=== PATIENT | female | born 1985 | race Caucasian/White ===

== ENCOUNTER 2016-08-29 09:31 | Emergency (ER) | payer OTHER ==
[~2016-08-29] VITALS: Ht 162.6 cm; Wt 85.0 kg
[2016-08-29 09:38] VITALS: TEMP 36.9; Ht 162.6 cm; Wt 85.0 kg
[2016-08-29] MEDS ORDERED: ACET-1256 PO (10:03)
--- NOTE | 2016-08-29 10:34 | EMERGENCY ROOM VISIT NOTE ---
History Report prepared by Moy: Cindy Sands Under the Supervision of: Dr. Kendall Ro D.O. First contact with patient: 09:48 Chief Complaint: RIB PAIN Stated Complaint: LEFT SIDE RIB,SHOULDER PAIN History of Present Illness The patient is a 31 year old female who presents to the Emergency Room with complaints of worsening left-sided rib pain since yesterday. She denies any acute injury or trauma to her ribs. She denies any recent heavy lifting. Her pain radiates into her left shoulder and worsens with inspiration. She rates her current pain as a 4/10 in severity, if she takes a deep breath her pain worsens to a 7/10. Yesterday she had pain in her chest but she denies any current chest pains. The patient denies any recent illness or cold symptoms. She denies any personal or family history of blood clots. She does not take any OCP. She denies any chance of . The patient has a history of melanoma when she was 20 and had lymph nodes in her neck removed as a result. She is unsure if she had chicken pox as a child. Source of History: patient Onset: yesterday Position: other (left rib) Symptom Intensity: 4/10 Quality: other (radiating) Timing: worsening Modifying Factors (Worsening): breathing (inspiration) Associated Symptoms: No chest pain Note: Pt notes pain in her left shoulder. Review of Systems See above for pertinent positives & negatives. A total of 10 systems reviewed and were otherwise negative. Past Medical & Surgical Medical Problems: (1) History of melanoma Surgical Problems: (1) H/O tubal ligation (2) Hx of melanoma excision Family History FH: cancer Kidney disease Kidney stones Social History Smoking Status: Current Every Day Smoker Smokeless Tobacco Use: No Alcohol Use: occasionally Drug Use: none Marital Status: Housing Status: lives with family Occupation Status: employed Current/Historical Medications Scheduled PRN Acetaminophen (Tylenol), 1,000 MG PO Q8 PRN for Pain Ibuprofen Tab (Motrin), 800 MG PO Q8H PRN for Pain Allergies Coded Allergies: Erythromycin (Verified Allergy, Mild, ., 08/29/16) Physical Exam Vital Signs Date Time Temp Pulse Resp B/P Pulse Ox O2 Delivery O2 Flow Rate FiO2 08/29/16 10:44 72 08/29/16 09:38 36.9 93 16 137/89 100 Room Air Physical Exam GENERAL: Patient is well appearing and in no acute distress. HEENT: No acute trauma, normocephalic atraumatic, mucous membranes moist, no nasal congestion, no scleral icterus. NECK: No stridor, no adenopathy, no meningismus, trachea is midline. LUNGS: No dyspnea. Clear to auscultation and equal bilaterally. No wheeze, no rhonchi. HEART: Regular rate and rhythm. No murmurs, rubs, gallops appreciated. CHEST: Mild precordial tenderness to palpation, no rash, mild tenderness over the left 7th rib. ABDOMEN: Soft, nontender, bowel sounds positive, no masses appreciated, no peritonitis. BACK: No midline tenderness, no CVA tenderness EXTREMITIES: Normal motion all extremities, no cyanosis, no edema. NEUROLOGIC: Alert and oriented, no acute motor or sensory deficits, no focal weakness, cranial nerves grossly intact. SKIN: No rash, no jaundice, no diaphoresis. Medical Decision & Procedures ER Provider Diagnostic Interpretation: Radiology results as stated below per my review and radiologist interpretation: CHEST 2 VIEWS ROUTINE CLINICAL HISTORY: Atypical chest pain COMPARISON STUDY: No previous studies for comparison. FINDINGS: The cardiac and mediastinal contours are normal. There is no evidence of focal pulmonary consolidation. There is no evidence of failure. No pleural effusions are visualized.[ There are linear opacities the right lung base consistent with atelectasis. IMPRESSION: Right basilar atelectatic change. Otherwise negative chest. Electronically signed by: Gaurav Schrader M.D. 08/29/2016 11:00 AM Dictated Date/Time: 08/29/2016 10:59 AM Laboratory Results 08/29/16 10:37 Red Blood Count 4.66, Mean Corpuscular Volume 86.3, Mean Corpuscular Hemoglobin 30.3, Mean Corpuscular Hemoglobin Concent 35.1, Mean Platelet Volume 10.3, Neutrophils (%) (Auto) 57.9, Lymphocytes (%) (Auto) 35.0, Monocytes (%) (Auto) 6.0, Eosinophils (%) (Auto) 0.8, Basophils (%) (Auto) 0.2, Neutrophils # (Auto) 5.08, Lymphocytes # (Auto) 3.07, Monocytes # (Auto) 0.53, Eosinophils # (Auto) 0.07, Basophils # (Auto) 0.02 08/29/16 10:37 Test 08/29/16 10:37 White Blood Count 8.78 K/uL (4.8-10.8) Red Blood Count 4.66 M/uL (4.2-5.4) Hemoglobin 14.1 g/dL (12.0-16.0) Hematocrit 40.2 % (37-47) Mean Corpuscular Volume 86.3 fL (80-100) Mean Corpuscular Hemoglobin 30.3 pg (25-34) Mean Corpuscular Hemoglobin Concent 35.1 g/dl (32-36) Platelet Count 217 K/uL (130-400) Mean Platelet Volume 10.3 fL (7.4-10.4) Neutrophils (%) (Auto) 57.9 % Lymphocytes (%) (Auto) 35.0 % Monocytes (%) (Auto) 6.0 % Eosinophils (%) (Auto) 0.8 % Basophils (%) (Auto) 0.2 % Neutrophils # (Auto) 5.08 K/uL (1.4-6.5) Lymphocytes # (Auto) 3.07 K/uL (1.2-3.4) Monocytes # (Auto) 0.53 K/uL (0.11-0.59) Eosinophils # (Auto) 0.07 K/uL (0-0.5) Basophils # (Auto) 0.02 K/uL (0-0.2) RDW Standard Deviation 42.0 fL (36.4-46.3) RDW Coefficient of Variation 13.3 % (11.5-14.5) Immature Granulocyte % (Auto) 0.1 % Immature Granulocyte # (Auto) 0.01 K/uL (0.00-0.02) D-Dimer 200 ug/L FEU (0-500) Anion Gap 8.0 mmol/L (3-11) Est Creatinine Clear Calc Drug Dose 101.2 ml/min Estimated GFR () 105.8 Estimated GFR (Non- 91.3 BUN/Creatinine Ratio 16.6 (10-20) Calcium Level 9.1 mg/dl (8.5-10.1) Laboratory results as reviewed by me. ECG Indication: chest pain Rate (beats per minute): 70 Rhythm: normal sinus Findings: no ectopy, other (normal axis, normal intervals) Comparison ECG Date: no prior available ED Course 1000: The patient was evaluated in room B12B. A complete history and physical exam was performed. 1200: I reassessed the patient at this time. She is feeling better and resting comfortably. I discussed the results and treatment plan with the patient. I answered all pertaining questions that she had. She expressed understanding and verbalized agreement. The patient will be discharged home. Medical Decision Patient is a 31-year-old female with a 2 day history of pleuritic-type chest pain which is worse when she takes deep breaths. She is a smoker she has a chronic cough that is not worse over the last 2 weeks. She has a history of melanoma which has been excised several years ago and has not been told of any recurrence. A d-dimer was obtained today to exclude venous thrombus embolism, it was negative, an EKG was obtained which was largely unremarkable. She'll be discharged home in improved stable condition with prescription for NSAIDs and given recommendations to follow up with chiropractic and massage therapy. Impression Primary Impression: Acute chest wall pain Additional Impressions: Intercostal muscle strain Hx of melanoma excision Scribe Attestation The scribe's documentation has been prepared under my direction and personally reviewed by me in its entirety. I confirm that the note above accurately reflects all work, treatment, procedures, and medical decision making performed by me. Departure Information Dispostion Home / Self-Care Prescriptions Ibuprofen Tab (MOTRIN) 800 Mg Tab 800 MG PO Q8H Y for Pain, #30 TAB Prov: Kendall Ro, D.O. 08/29/16 Referrals No Doctor, Assigned (PCP) Forms HOME CARE DOCUMENTATION FORM, IMPORTANT VISIT INFORMATION, WORK / SCHOOL INSTRUCTIONS Patient Instructions ED Chest Pain Costochondritis, My [facility] Additional Instructions Return to the emergency department for severe chest pain, inability to breathe, passing out, or any other concerns. This is a inter-rib muscle strain, /therapy and chiropractic therapy may help. Anti-inflammatories as needed for pain. Problem Qualifiers Additional Impressions: Intercostal muscle strain Encounter type: initial encounter Qualified Codes: S29.011A - Strain of muscle and tendon of front wall of thorax, initial encounter
[2016-08-29 10:48] LABS: BASO % 0.2 %; BASO ABS # 0.02 K/uL (0-0.2); COMPLETE YES; EOS % 0.8 %; HEMATOCRIT 40.2 % (37-47); IG% 0.1 %; LYMPH ABS # 3.07 K/uL (1.2-3.4); MEAN CELL VOLUME 86.3 fL (80-100); MEAN CORPUSCULAR HEMOGLOBIN 30.3 pg (25-34); MEAN CORPUSCULAR HGB CONC 35.1 g/dl (32-36); MEAN PLATELET VOLUME 10.3 fL (7.4-10.4); NEUT % 57.9 %; PLATELET COUNT 217 K/uL (130-400); RED BLOOD COUNT 4.66 M/uL (4.2-5.4); WHITE BLOOD COUNT 8.78 K/uL (4.8-10.8)
--- NOTE | 2016-08-29 11:01 | DIAGNOSTIC IMAGING REPORT ---
CHEST 2 VIEWS ROUTINE CLINICAL HISTORY: Atypical chest pain COMPARISON STUDY: No previous studies for comparison. FINDINGS: The cardiac and mediastinal contours are normal. There is no evidence of focal pulmonary consolidation. There is no evidence of failure. No pleural effusions are visualized.[ There are linear opacities the right lung base consistent with atelectasis. IMPRESSION: Right basilar atelectatic change. Otherwise negative chest. Electronically signed by: Gaurav Schrader M.D. 08/29/2016 11:00 AM Dictated Date/Time: 08/29/2016 10:59 AM
[2016-08-29 11:03] LABS: BUN/CREATININE RATIO 16.6 (10-20); CALCIUM 9.1 mg/dl (8.5-10.1); CREATININE 0.85 mg/dl (0.60-1.20); POTASSIUM 3.9 mmol/L (3.5-5.1)
[2016-08-29] MEDS ORDERED: IBUP-1451 PO (11:54)
[2016-08-29 12:01] VITALS: BP 131/80; PULSE 78; O2SAT 100
== END 2016-08-29 12:17 | disposition home or self-care (01) ==
LOC: C.EDB 09:33
DX: R07.89 Other chest pain (principal); S29.011A Strain of muscle and tendon of front wall of thorax, initial encounter; X58.XXXA Exposure to other specified factors, initial encounter; Z98.890 Other specified postprocedural states; F17.200 Nicotine dependence, unspecified, uncomplicated; Z85.820 Personal history of malignant melanoma of skin; Z98.51 Tubal ligation status; Z84.1 Family history of disorders of kidney and ureter